=== PATIENT | male | born 1990 | race Caucasian/White ===

== ENCOUNTER 2021-11-23 09:25 | Inpatient (IN) | payer OTHER ==
[~2021-11-23] VITALS: Ht 170.2 cm; Wt 63.5 kg
--- NOTE | ~2021-11-23 | EMS ---
[address] [address] EMS Patient Care Report Name: KATIUSKA MARTINO Room #: PRE JARVIS Howard#: [id number] Admission: Attend Phys: Discharge: Date of : [birth year] Report #: [id number] THIS REPORT FOR: //name// Report Transmitted: 11/23/2021 09:03 EMS Care Summary [facility] Incident [id number] @ 11/23/2021 08:44 Incident Location [address], [place] [address] Patient KATIUSKA MARTINO Male, 31 Years 1990 Patient Address [address], [place] [address] Patient History Human Immunodeficiency Virus Disease (HIV/AIDS),Testicular Cancer, Patient Allergies No known allergies, Patient Medications Other, Chief Complaint " I took some pills" Disposition Transported No Lights/[place] Reason Psychiatric Problem/Abnormal Behavior/Suicide Attempt Transported To [facility] Narrative EMS made contact with 1 male pt sitting in his living room in no apparent distress. Pt was &O x4 and complained of intentional self harm by taking [address] [address] EMS Patient Care Report Name: KATIUSKA MARTINO Room #: [facility]..#: [id number] Admission: Attend Phys: Discharge: Date of : [birth year] Report #: [id number] Tylenol. Pt reported that the previous evening around 2300 he took 30 Tylenol and drank liquid Nyquil. Pt reported that he had recently relapsed on methamphetamine and was feeling very depressed about it. Pt reported that he had cut his wrists first and was unable to get deep enough so he took the medications to kill himself. Pt reported that he had been nauseous this morning. Pt denied CP, SOA, RHODES, numbness or tingling. Pt voiced no further complaints. Initial Vitals @09:21P: 63,BP: 135/93, @09:05P: 61,R: 16,BP: 137/92,Pain: 0/10,GCS: 15,Temp: 97.3F,SpO2: 99,Revised Trauma: 12, Impression Suicide attempt Procedures @09:08 Surgical Mask on Patient Response: Unchanged Timeline 08:42,Call Received 08:42,Psap Call 08:44,Dispatched 08:44,En Route 09:01,On Scene 09:02,At Patient 09:05,BP: 137/92 M,PULSE: 61,RR: 16 R,SPO2: 99 Ox,ETCO2: ,BG: ,PAIN: 0,GCS: 15, 09:08,Surgical Mask on Patient,Response: Unchanged 09:12,Depart Scene 09:21,BP: 135/93 M,PULSE: 63,RR: R,SPO2: Ox,ETCO2: ,BG: ,PAIN: ,GCS: , 09:22,At Destination 09:33,Call Closed Disclaimer v1.1 Copyright 2021 [employer] This EMS Care Summary contains data elements from the applicable legal record (which may be displayed differently). It is designed to provide pertinent information for the following purposes: continuity of care, clinical quality, and state data reporting. The complete legal record is available to ED staff and administrators of the receiving hospital in [employer]'s Patient Tracker. All data is provided "as is."
[~2021-11-23 09:25] MED LIST: IBUPROFEN 800800 MG PO; PERCOCET PO; SUDAFED 12 HOU120 MG
[2021-11-23 09:26] VITALS: BP 126/82
[2021-11-23 09:48] LABS: ABSOLUTE NEUTROPHILS 2.4 thou/uL (1.4-8.2); BASOPHILS 2.2 % (0.0-2.0); EOSINOPHILS 0.8 % (0.0-3.0); HEMATOCRIT 47.2 % (42.0-52.0); LYMPHOCYTES 27.7 % (24.0-44.0); MCH 31.3 pg (26.0-34.0); MCHC 33.8 g/dL (28.0-37.0); MCV 92.5 fL (80.0-100.0); MONOCYTES 8.5 % (1.0-8.0); PLATELET COUNT 200 thou/uL (150-400); POLYS 60.8 % (36.0-66.0); RDW 13.7 % (10.5-14.5); WBC 3.9 thou/uL (4.0-11.0)
[2021-11-23 10:06] LABS: ANION GAP 10 mmol/L (7-16); BUN 20 mg/dL (7-18); CALCIUM 9.6 mg/dL (8.5-10.1); CHLORIDE 99 mmol/L (98-107); CO2 27 mmol/L (21-32); CREATININE 1.3 mg/dL (0.7-1.3); GLUCOSE 124 mg/dL (74-106); POTASSIUM 3.9 mmol/L (3.5-5.1); SODIUM 136 mmol/L (136-145)
[2021-11-23 10:13] LABS: ALBUMIN 4.7 g/dL (3.4-5.0); DIRECT BILIRUBIN 0.2 mg/dL (<0.1-0.2); SALICYLATE < 2.8 mg/dL (2.8-20.0); SGOT 125 U/L (15-37); SGPT 171 U/L (16-63); TOTAL BILIRUBIN 1.4 mg/dL (0.2-1.0); TOTAL PROTEIN 8.2 g/dL (6.4-8.2)
[2021-11-23 13:00] LABS: AMP/METHAMP POSITIVE (Negative); BARBITURATES Negative (Negative); BENZODIAZEPINES Negative (Negative); COCAINE Negative (Negative); METHADONE Negative (Negative); OPIATES Negative (Negative); PCP Negative (Negative)
[2021-11-23 15:00] VITALS: BP 136/86
[2021-11-23 22:28] VITALS: BP 120/62
[2021-11-24 07:23] VITALS: BP 127/82
[2021-11-24 08:31] VITALS: BP 118/92
[2021-11-24 09:08] LABS: HEMATOCRIT 42.1 % (42.0-52.0); HEMOGLOBIN 14.4 gm/dL (14.0-18.0); MCH 31.5 pg (26.0-34.0); MCHC 34.2 g/dL (28.0-37.0); MCV 91.9 fL (80.0-100.0); RBC 4.58 mil/uL (4.50-6.00); RDW 13.4 % (10.5-14.5); WBC 5.3 thou/uL (4.0-11.0)
[2021-11-24 09:22] LABS: ALBUMIN 3.6 g/dL (3.4-5.0); CALCIUM 8.5 mg/dL (8.5-10.1); POTASSIUM 3.6 mmol/L (3.5-5.1); TOTAL BILIRUBIN 1.1 mg/dL (0.2-1.0); TOTAL PROTEIN 6.7 g/dL (6.4-8.2)
--- NOTE | 2021-11-24 09:49 | NUR ---
ON ONE ON ONE FOR SI. A/O X 4. ROOM AIR. STAND BY. NO PAIN NOTED. RIGHT AC IV WITH NS INFUSING @ 100 MLS/HR. VERY SLEEPY. HAS SITTER IN ROOM. Q 15 MIN CHECKS.
[2021-11-24 11:13] VITALS: BP 114/67
--- NOTE | 2021-11-24 15:56 | NUR ---
patient admits from home with Tylenol overdose. Sp with Eleni with [facility] who reports she met with patient in [place] and reassessed him today. She reports patient is not suicidal today. Her assessment is in physical chart on paper. [facility] assessment does not have computer access. She reports patient has hx of substance abuse. he has been at multiple treatment facilities. he want to be medicated for depression. She reports he has a job and worried of missing work. He may be candidate for [facility] which is short say usu 3-5 days for stablazation. Patient plans to sp with his mom regarding option. Patient has access to phone, cell phone, and appears regular meal tray. Sitter stil at bedside. If patient dc overweekend please call Catherine [phone] to sp with patient to determine if agreeable to transfer to [facility]. If patient agreeable obtain address with Catherine. Chart copied. Transfer order to be signed. [facility] form on chart. Can arrange transport to [facility].
--- NOTE | 2021-11-24 16:23 | NUR ---
Patient admits with respitory failure/PE. Prior to admission referral for [facility] has already been in process. Sp with dtr at bedside. She reports patient resides in independent living at [place] in 2 bedroom apt. She uses a walker for ambulation. She has oxygen at home from [employer]. Dtr reports patient has been decling. She reports patient will have portable oxygen on and battery would run out and she did not know how to recharge. [facility] met with patient today. Family sigened consents. Outside DNR on chart. Tenative plan home with hospice in am. Offered [facility] to be arranged. At this time family prefers car. They have family to assist getting in/out of car. [facility] form on chart if change their mind. If patient to dc home call [facility] Vianca at [phone]. Fax orders to [phone].
[2021-11-24 20:15] VITALS: BP 116/51
[2021-11-25 06:39] LABS: ALBUMIN 3.2 g/dL (3.4-5.0); CALCIUM 8.4 mg/dL (8.5-10.1); CREATININE 0.9 mg/dL (0.7-1.3); POTASSIUM 4.1 mmol/L (3.5-5.1); TOTAL BILIRUBIN 0.3 mg/dL (0.2-1.0); TOTAL PROTEIN 5.8 g/dL (6.4-8.2)
[2021-11-25 07:45] VITALS: BP 103/54
[2021-11-25 21:23] LABS: INR 1.14; PROTIME 12.4 Seconds (10.5-12.1)
[2021-11-26 04:06] LABS: INR 1.14; PROTIME 12.4 Seconds (10.5-12.1)
[2021-11-26 04:54] LABS: ALBUMIN 3.2 g/dL (3.4-5.0); CALCIUM 8.7 mg/dL (8.5-10.1); CREATININE 0.9 mg/dL (0.7-1.3); MAGNESIUM 2.1 mg/dL (1.8-2.4); POTASSIUM 4.1 mmol/L (3.5-5.1); TOTAL BILIRUBIN 0.4 mg/dL (0.2-1.0)
--- NOTE | 2021-11-26 05:11 | NUR ---
Pt. rested quietly during the night when checked on durng frequent rounds. Zofran ivp given for c/o nausea (see emar) with some relief noted. No other complaints offered.
[2021-11-26 07:58] VITALS: BP 103/56
--- NOTE | 2021-11-26 10:05 | NUR ---
ASSUMED CARE OF PT AT 0700 THIS MORNING. PT IS A/OX4 AND HAS NOT SHOWN SIGNS OF SELF HARM. PT ASSESSMENTS NOTED IN CHART AND OTHERWISE UNREMARKABLE. SELF HARM PRECAUTIONS IN PLACE. CALL LIGHT AND OTHER NEEDS ARE IN REACH. PT IS UP INDEP NO FALL PRECAUTIONS IN PLACE. MEDS AND TX GIVEN NEEDED AND SCHEDULED. WILL MONITOR AND NOTE ANY CHANGES.
[2021-11-26 11:57] VITALS: BP 106/56
[2021-11-26 13:47] LABS: ALBUMIN 3.1 g/dL (3.4-5.0); CALCIUM 8.5 mg/dL (8.5-10.1); CREATININE 0.9 mg/dL (0.7-1.3); POTASSIUM 3.7 mmol/L (3.5-5.1); TOTAL BILIRUBIN 0.5 mg/dL (0.2-1.0); TOTAL PROTEIN 6.1 g/dL (6.4-8.2)
[2021-11-26 19:51] VITALS: BP 108/54
[2021-11-27 01:39] LABS: ALBUMIN 2.9 g/dL (3.4-5.0); CALCIUM 8.4 mg/dL (8.5-10.1); CREATININE 0.8 mg/dL (0.7-1.3); POTASSIUM 4.1 mmol/L (3.5-5.1); TOTAL BILIRUBIN 0.3 mg/dL (0.2-1.0); TOTAL PROTEIN 5.9 g/dL (6.4-8.2)
[2021-11-27 04:55] VITALS: BP 96/55
--- NOTE | 2021-11-27 06:15 | NUR ---
NO ACUTE EVENTS THIS SHIFT. NEW LAB RESULTS GIVEN TO POISON CONTROL. PT IS SB ON ARNAV 40S ON THE MONITOR WITH STABLE VITAL SIGNS. EDUCATION ABOUT CARE PLAN AND DIAGNOSIS ATTEMPTED- PT IS VERY LACKADAISICAL ABOUT CURRENT STAY. PT NOTED SOME ABD DISCOMFORT- NOTES HE HAS NOT HAD A BM SINCE BEFORE HS ARRIVAL, STOOL STOFTENERS ORDERED.
[2021-11-27 06:23] LABS: INR 1.08; PROTIME 11.7 Seconds (10.5-12.1)
[2021-11-27 06:37] LABS: ALBUMIN 2.8 g/dL (3.4-5.0); CALCIUM 8.3 mg/dL (8.5-10.1); CREATININE 0.8 mg/dL (0.7-1.3); MAGNESIUM 2.1 mg/dL (1.8-2.4); POTASSIUM 4.1 mmol/L (3.5-5.1); TOTAL BILIRUBIN 0.3 mg/dL (0.2-1.0); TOTAL PROTEIN 5.8 g/dL (6.4-8.2)
[2021-11-27 08:30] VITALS: BP 93/57
--- NOTE | 2021-11-27 11:13 | NUR ---
RE-ASSUMED CARE OF PT AT 0700 THIS MORNING. PT IS A/OX4 AND NO CHANGES SINCE YESTERDAY. ASSESSMENTS NOTED IN CHART AND OTHERWISE UNREMARKABLE. PT IS UP INDEP AND NO FALL PRECAUTIONS ARE NEEDED. CALL LIGHT AND OTHER NEEDS ARE IN PLACE. MEDS AND TX GIVEN NEEDED AND SCHEDULED. WILL MONITOR AND NOTE ANY CHANGES.
[2021-11-27 11:44] LABS: CALCIUM 8.8 mg/dL (8.5-10.1); CREATININE 0.9 mg/dL (0.7-1.3); TOTAL BILIRUBIN 0.3 mg/dL (0.2-1.0); TOTAL PROTEIN 6.2 g/dL (6.4-8.2)
[2021-11-27 11:48] VITALS: BP 98/49
[2021-11-27 14:32] VITALS: BP 98/49
--- NOTE | 2021-11-27 14:40 | NUR ---
patient to tn home today. he has spoke with [facility] on saturday and has mental health resources for follow-up in community.
--- NOTE | 2021-11-27 17:19 | HC ---
[facility] [place] [address] CONSULTATION Name: KATIUSKA MARTINO Room #: 446-P [facility] IN M.R.#: [id number] Admission: 11/23/21 Attend Phys: Edison Hair MD Discharge: 11/27/21 Date of : [birth year] Report #: [id number] THIS REPORT FOR: cc: FAM - No family physician/PCP FAM - No family physician/PCP Denis Smart MD ~ DATE OF SERVICE: 11/24/2021 INFECTIOUS DISEASE CONSULTATION REASON FOR CONSULTATION: I was asked to evaluate concerning HIV treatment in the setting of failed suicide attempt. HISTORY OF PRESENT ILLNESS: The patient is a 31-year-old HIV diagnosed approximately 5 years ago. He has been on antiretroviral therapy, most recently over the last year has been on Cabenuva monthly injectable for his antiviral therapy. He has been doing well with this under the care of Dr. Maia Gordillo from [facility]. He reports no opportunistic infections. Does have a history of testicular cancer treated over 5 years ago. He is in remission. He had a previous suicide attempt at age 14, was on antidepressant therapy for extended period of time. Did not like how it made him feel and he discontinued this. He does have a history of methamphetamine abuse, narcotic and alcohol abuse. He attempted to commit suicide with Tylenol and Nyquil ingestion. These were taken last evening. He presented to the Emergency Room and has done well thus far. ALLERGIES: None known. MEDICATIONS: As noted on his MAR. PAST MEDICAL HISTORY: In addition to the above, wisdom teeth removed and an appendectomy. FAMILY HISTORY: Noncontributory. SOCIAL HISTORY: He is also a smoker of cigarettes. REVIEW OF SYSTEMS: A 14-point review of system was negative other than what has been described above. PHYSICAL EXAMINATION: GENERAL: The patient was afebrile and hemodynamically stable. He was alert and cooperative. He was pleasant, in no distress. He had multiple tattoos. LABORATORY DATA: Reviewed. [address] [address] CONSULTATION Name: KATIUSKA MARTINO Room #: 446-[facility] IN M.R.#: [id number] Admission: 11/23/21 Attend Phys: Edison Hair MD Discharge: 11/27/21 Date of : 89 Report #: [id number] IMPRESSION AND PLAN: A 31-year-old with human immunodeficiency virus infection, previous history of treated testicular cancer with no evidence of recurrence, presents now with a suicide attempt and findings of hepatitis and drug screen positive for methamphetamines. Plan would be to have the patient followup following his hospitalization with Dr. Maia Gordillo to continue his antiretroviral program. The patient does state that he has been under good control with no opportunistic infections. Unclear what his previous liver function tests have been in the past. These will need to be compared. Please forward his laboratory studies to [facility], Infectious disease service, attention Dr. Maia Gordillo. Follow serial laboratory studies while hospitalized. <ELECTRONICALLY SIGNED> By: Denis Smart MD 11/27/21 1719 [id number] Denis Smart MD /nt
== END 2021-11-27 16:23 | disposition home or self-care (01) | DRG 918 ==
LOC: ER 09:25 → 4S 11:48 → EROBS 11:48 → 4S 22:28
PROVIDERS: Emergency Medicine; Internal Medicine; Psychiatry & Neurology Psychiatry; ADMIT Internal Medicine; ATTEND Internal Medicine
DX: T39.1X2A Poisoning by 4-Aminophenol derivatives, intentional self-harm, initial encounter (principal); B17.9 Acute viral hepatitis, unspecified; Z60.2 Problems related to living alone; T14.91XA Suicide attempt, initial encounter; F17.210 Nicotine dependence, cigarettes, uncomplicated; F15.10 Other stimulant abuse, uncomplicated; F32.9 Major depressive disorder, single episode, unspecified; R74.01 Elevation of levels of liver transaminase levels; Z21 Asymptomatic human immunodeficiency virus [HIV] infection status; F10.10 Alcohol abuse, uncomplicated; F11.10 Opioid abuse, uncomplicated; Z20.822 Contact with and (suspected) exposure to COVID-19; Z90.49 Acquired absence of other specified parts of digestive tract; Y92.89 Other specified places as the place of occurrence of the external cause; Z79.899 Other long term (current) drug therapy
CPT/HCPCS: 10100